=== PATIENT | male | born 1970 | race Caucasian/White ===

== ENCOUNTER 2016-12-08 10:01 | Day surgery (SDC) | payer OTHER ==
[2016-12-05 10:27] LABS: HEMATOCRIT 43.2 % (37.9-51.0); HEMOGLOBIN 13.9 g/dL (13.5-17.0); HGB HCT DIFFERENCE -1.5; MEAN CORPUSCULAR HEMOGLOBIN 26.4 pg (27.0-33.4); MEAN CORPUSCULAR HGB CONC 32.2 g/dL (32.0-36.0); MEAN CORPUSCULAR VOLUME 82 fl (80-97); RED BLOOD COUNT 5.29 10^6/uL (4.35-5.55); RED CELL DISTRIBUTION WIDTH 14.8 % (11.5-14.0); WHITE BLOOD COUNT 7.4 10^3/uL (4.0-10.5)
[2016-12-05 10:50] LABS: ANION GAP 10 (5-19); BLOOD UREA NITROGEN 15 mg/dL (7-20); CALCIUM 10.2 mg/dL (8.4-10.2); CARBON DIOXIDE 27 mmol/L (22-30); CHLORIDE 104 mmol/L (98-107); CREATININE RESULT 0.97 mg/dL (0.52-1.25); GLUCOSE 73 mg/dL (75-110); POTASSIUM 4.3 mmol/L (3.6-5.0)
--- NOTE | 2016-12-05 12:43 | EKG REPORT ---
SEVERITY:- NORMAL ECG - SINUS RHYTHM : Confirmed by: Yael Burns MD 05-Dec-2016 12:42:35
[~2016-12-08 10:01] MED LIST: CEFAZOLIN 1 GM/D5W RTU 1 GM/50 ML RTUPB IV PRN; CEFAZOLIN SODIUM 1 GM in DEXTROSE 5%-WATER 50 ML IV PRN; LACTATED RINGERS 1000 ML IV SCH; LIDOCAINE 0.5% INJ-PF (5 MG/ML) 50 ML SDV SUBCUT PRN
[2016-12-08] MEDS ORDERED: BACITRACIN INJ 50,000 UNIT VIAL ONE (10:55)
[2016-12-08] MEDS ORDERED: BUPIVACAINE HCL 0.25 % INJ/PF (2.5 MG/1 ML) 30 ML VIAL ONE (10:55)
[2016-12-08] MEDS ORDERED: LIDOCAINE 0.5% INJ-PF (5 MG/ML) 50 ML SDV ONE (10:55)
[2016-12-08] MEDS ORDERED: FENTANYL CITRATE INJ/PF 250 MCG/5 ML AMPULE ONE (11:16)
[2016-12-08] MEDS ORDERED: ACETAMINOPHEN 100 ML IV ONE (11:17)
[2016-12-08] MEDS ORDERED: MORPHINE SULFATE 10 MG/ML INJ ONE (11:17)
[2016-12-08] MEDS ORDERED: MIDAZOLAM 2 MG/2 ML INJ ONE (11:17)
[2016-12-08] MEDS ORDERED: FENTANYL CITRATE INJ/PF 100 MCG/2 ML AMPUL ONE (11:17)
[2016-12-08] MEDS ORDERED: PROPOFOL INJ 200 MG/20 ML VIAL IV ONE (11:17)
[2016-12-08] MEDS ORDERED: MORPHINE SULFATE 10 MG/ML INJ IV PRN (11:54)
[2016-12-08] MEDS ORDERED: DIPHENHYDRAMINE HCL 50 MG/ML VIAL IV PRN (11:54)
[2016-12-08] MEDS ORDERED: OXYCODONE-ACETAMINOPHEN 5-325 MG TABLET PO PRN ×2 (11:54)
[2016-12-08] MEDS ORDERED: MEPERIDINE HCL/PF INJ 25 MG/1 ML DISP.SYRIN IV PRN (11:54)
[2016-12-08] MEDS ORDERED: PROMETHAZINE HCL INJ 25 MG/1 ML VIAL IV PRN ×2 (11:54)
[2016-12-08] MEDS ORDERED: FENTANYL CITRATE INJ/PF 100 MCG/2 ML AMPUL IV PRN ×3 (11:54)
[2016-12-08] MEDS ORDERED: DEXAMETHASONE SOD PHOSPHATE INJ 4 MG/1 ML VIAL ONE (13:12)
[2016-12-08] MEDS ORDERED: ROCURONIUM BROMIDE INJ 50 MG/5 ML VIAL IV ONE (13:12)
[2016-12-08] MEDS ORDERED: ONDANSETRON HCL INJ/PF 4 MG/2 ML SDV ONE (13:12)
[2016-12-08] MEDS ORDERED: SUCCINYLCHOLINE CHLORIDE INJ 200 MG/10 ML VIAL ONE (13:12)
[2016-12-08] MEDS ORDERED: GLYCOPYRROLATE INJ 0.4 MG/2 ML VIAL ONE (13:12)
[2016-12-08] MEDS ORDERED: KETOROLAC TROMETHAMINE 60 MG/2 ML SDV ONE (13:12)
[2016-12-08] MEDS ORDERED: LIDOCAINE 2% INJ-PF (20 MG/ML) 10 ML AMPUL ONE (13:12)
[2016-12-08] MEDS ORDERED: NEOSTIGMINE METHYLSULFATE 10 MG/10 ML VIAL ONE (13:12)
[2016-12-08] MEDS ORDERED: DIPHENHYDRAMINE HCL 50 MG/ML VIAL ONE (13:17)
--- NOTE | 2016-12-08 15:00 | Operative Report ---
Operative Report DATE OF SURGERY: 12/08/16 PREOPERATIVE DIAGNOSIS: #1 symptomatic partially incarcerated umbilical hernia. #2 body mass index. POSTOPERATIVE DIAGNOSIS: #1 symptomatic partially incarcerated umbilical hernia. #2 body mass index. OPERATION: Reduction and repair of incarcerated umbilical hernia with mesh. SURGEON: TRUE [employer] STENOGRAPHER: KATHARINA PRIDE ANESTHESIA: GA TISSUE REMOVED OR ALTERED: Not applicable. COMPLICATIONS: None ESTIMATED BLOOD LOSS: 10 mL. INTRAOPERATIVE FINDINGS: Of an umbilical hernia defect about 2 cm. Chronically incarcerated preperitoneal fat was encountered and this was re-replaced within the perineal cavity. Nice dissection in the preperitoneal and retrorectus space was done so as to accommodate the 8 cm mesh. Very nice hemostasis was obtained there in. Satisfactory repair seems to have been accomplished. PROCEDURE: After obtaining informed consent and going over the procedure with [the patient and his family], he was taken to the operating room, he was anesthetized and intubated. The abdomen was prepped and draped in the usual sterile fashion. After the universal timeout, in which it was verified that the patient received IV antibiotic, the procedure commenced. A midline incision was made, curvilinear around the umbilicus about 5 cm in length. This is in reference to the palpation and marking of the abdominal wall bulge. Local anesthesia was infiltrated. Incision was made with a [15 blade scalpel]. Dissection now proceeded through the subcutaneous tissue down to the hernia sac and umbilical remnant. The umbilical remnant was transected about half a centimeter deep to the skin. The margins of the hernia were defined dissecting with cautery and scissor dissection as needed. Because of fragility of the peritoneum laterally and proceeded into the retrorectus space so as to obtain sufficient space for the mesh. The fascial margins were serially grasped with Raudel clamps and elevated. This facilitated [ retroperitoneal dissection]. This was done circumferentially for at least [4 cm , in all directions]. This was facilitated by by moving from each side of the table so as to get optimal access to the other. Hemostasis was now secured in this space using monopolar cautery. In order to facilitate fascial closure, a [ unilateral component separation release] was done in a minimally invasive fashion. The dimensions of the fascial defect were measured out. It was enlarged somewhat to accommodate the mesh. A mesh was selected of the size, sufficient to cover the hernia defect with at least a 3 cm overlap. The mesh was now deployed flat in the preperitoneal space. It was anchored and kept slightly taut. In this way circumferential control of the mesh was accomplished. The wound was irrigated with antibiotic containing solution. . Fascial closure, was now accomplished using a continuous suture of 0 PDS. This was done with bites 5 mm apart and 5 mm away from the fascial edge. This conforms to best practices for reduction of hernia recurrence. The subcutaneous tissues under it when it were now irrigated with antibiotic containing solution. The subcutaneous tissues were closed using layers of interrupted 3-0 PDS sutures. The skin was closed using a continuous suture of 4-0 Monocryl. This was reinforced with Steri-Strips over benzoin and a sterile dressing applied. The first line production supervisor provided retraction, thus facilitating the operative view. Controlled bleeding. The first line production supervisor also followed the suturing, thus facilitating accurate suture placement. Sutured skin and applied dressings. Copies dictated operative report to Dr. True Galindo MD
--- NOTE | 2016-12-08 15:01 | PDOC DISCHARGE SUMMARY ---
Discharge Summary (SDC) - Discharge Final Diagnosis: #1 incarcerated umbilical hernia. #2 crease body mass index. #3 gout. #4 hypertension Date of Surgery: 12/08/16 Discharge Date: 12/08/16 Forms: [facility] Anesthesia D/C Instruction, Discharge POC-Surgical Service Treatment or Instructions: #1 activities within moderation encouraged. Up to the level of walking. No lifting over 10 pounds. #2 follow up in my office by appointment in about 1 week. Call for appointment. #3 the wounds covered clean and dry until office visit. #4 hold off on school/work until evaluation in office. #5 may shower in 48 hours, keep operated area as dry as possible. #6 discharge from ambulatory when ASU criteria met. #7 medications per medication reconciliation sheet. #8 Percocet by prescription.. Also may have one Percocet up to every 2 hours when necessary for pain greater than 4 out of 10 while in the ASU #9 place an abdominal binder. The patient is to keep it in place as much as possible. #10 diet is full liquid advancing as tolerated. Increase oral fluids especially water much encouraged. Prescriptions: Ketorolac Tromethamine [Toradol 10 mg Tablet] 10 mg PO Q8HP #9 tablet Oxycodone HCl/Acetaminophen [Percocet 5-325 mg Tablet] 1 tab PO ASDIR PRN #15 tab PRN Reason: Referrals: DAVIS CLOUD DO [Primary Care Provider] - Discharge Diet: Other (Comments) - Full liquid advancing to regular as tolerated. Push fluids. Include fiber. Respiratory Treatments at Home: Incentive Spirometer Discharge Activity: No Lifting Over 10 Pounds, Walk Frequently Report the Following to Your Physician Immediately: Shortness of Breath, Fever over 101 Degrees, Unusual Bleeding
[2016-12-08 16:46] VITALS: BP 138/94
== END 2016-12-08 15:15 | disposition home or self-care (01) ==
LOC: OROUT 10:01
PROVIDERS: ATTEND Surgery
PROC: 0WUF0JZ Supplement Abdominal Wall with Synthetic Substitute, Open Approach (ICD-10-PCS; principal; 2016-12-08 12:30)
DX: K42.9 Umbilical hernia without obstruction or gangrene (principal); M10.9 Gout, unspecified; K42.0 Umbilical hernia with obstruction, without gangrene; I10 Essential (primary) hypertension; M19.90 Unspecified osteoarthritis, unspecified site; Z87.891 Personal history of nicotine dependence
CPT/HCPCS: 93005; 36415 ×2; 84132; 85027; 80048; 71020; 93010; 49587; J2250; J3490 ×4; J0690; J1100; J1200; J1885; J3010; J2270; J0330; J2405; J2704; J0131; 830